=== PATIENT | female | born 1980 | race Caucasian/White ===

== ENCOUNTER → 2017-11-01 | Outpatient (CLI) | payer OTHER | END | disposition home or self-care (01) | LOC: CFH 12:59 | PROVIDERS: ATTEND Obstetrics & Gynecology Reproductive Endocrinology | DX: Z13.0 Encounter for screening for diseases of the blood and blood-forming organs and certain disorders involving the immune mechanism (principal); D68.318 Other hemorrhagic disorder due to intrinsic circulating anticoagulants, antibodies, or inhibitors; Z13.29 Encounter for screening for other suspected endocrine disorder; E23.6 Other disorders of pituitary gland; E28.9 Ovarian dysfunction, unspecified | CPT/HCPCS: 36415; 84146; 84443; 85613; 85670; 85705; 85732; 86146; 86147; 86148; 86762; 86900 ==